=== PATIENT | female | born 1985 | race Caucasian/White ===

== ENCOUNTER → 2017-04-27 | Outpatient (CLI) | payer BC ==
[~2017-04-27] MED LIST: ANAPROX DS550 MG PO; CLINDAMYCIN HC300 MG PO; CYCLOBENZAPRINE10 MG PO; FLEXERIL5 MG PO; MEDROL DOSEPAK4 MG PO; MOTRIN800 MG PO; NAPROSYN500 MG PO; NKHM; NO DAILY MEDS; NORCO 5-325 TA1 EACH PO; PEN-VEE K500 MG PO; PHENERGAN25 M1 PO; PHENERGAN25 MG RC; ROBITUSSIN AC 10 MG/ PO; SYNTHROID RP0.1 MG PO; TYLENOL W/CODEI1 TA2 PO; ULTRAM50 MG PO; XANAX0.25 MG PO; ZITHROMAX250 MG PO; ZOFRAN ODT4 MG SL
[2017-04-27 14:21] LABS: FREE T4 0.99 ng/dl (0.76-1.46)
[2017-04-27 14:26] LABS: THYROID STIM HORMONE (HS) 1.03 uIU/ml (0.358-4.75)
== END | disposition home or self-care (01) ==
LOC: LAB 12:37 → US 13:00
PROVIDERS: Otolaryngology Plastic Surgery within the Head & Neck
DX: E04.1 Nontoxic single thyroid nodule (principal)

== ENCOUNTER 2018-12-13 10:02 | Emergency (ER) | payer BC ==
[~2018-12-13] VITALS: Ht 157.4 cm
[2018-12-13] MEDS ORDERED: AMOXICILLIN500 M2 PO (10:25)
[2018-12-13] MEDS ORDERED: FLONASE ALLERG9.9 ML NAS (10:25)
== END 2018-12-13 10:31 | disposition home or self-care (01) ==
LOC: ED 10:02
DX: J01.90 Acute sinusitis, unspecified (principal); F17.200 Nicotine dependence, unspecified, uncomplicated

== ENCOUNTER → 2019-06-21 | Outpatient (CLI) | payer BC ==
[~2019-06-21] MED LIST changes: +AMOXICILLIN500 M2 PO; +FLONASE ALLERG9.9 ML NAS; +Synthroid,Levo25 MCG PO
== END | disposition home or self-care (01) ==
LOC: US 05-29 13:00
DX: E03.9 Hypothyroidism, unspecified (principal); Z85.850 Personal history of malignant neoplasm of thyroid; Z90.89 Acquired absence of other organs

== ENCOUNTER → 2019-06-28 | Outpatient (CLI) | payer BC ==
[2019-06-28 12:27] LABS: BASO # 0.1 10*3/uL (0.0-0.1); BASO % 0.6 % (0.0-1.0); EOS # 0.4 10*3/uL (0.0-0.4); EOS % 3.6 % (1.0-4.0); HEMATOCRIT 45.2 % (37.0-47.0); HEMOGLOBIN 14.9 g/dl (12.0-16.0); LYMPH # 3.5 10*3/uL (1.3-4.4); LYMPH % 28.3 % (27.0-41.0); MEAN CELL VOLUME 91.5 fl (81.0-99.0); MEAN CORPUSCULAR HGB 30.2 pg (27.0-31.0); MEAN PLATELET VOLUME 11.5 fl (9.6-12.3); MONO # 0.7 10*3/uL (0.1-1.0); NEUT # 7.5 10*3/uL (2.3-7.9); NEUT % 61.1 % (47.0-73.0); PLATELET COUNT AUTOMATED 236 10*3/uL (130-400); RED BLOOD COUNT 4.94 10*6/uL (4.10-5.10); RED CELL DISTRI WIDTH 13.1 % (0-14.5); WHITE BLOOD COUNT 12.3 10*3/uL (4.8-10.8)
[2019-06-28 12:43] LABS: ALBUMIN 3.9 gm/dl (3.1-4.5); BILIRUBIN, DIRECT 0.2 mg/dL (0.0-0.2); TOTAL PROTEIN 7.7 gm/dL (6.4-8.2)
== END | disposition home or self-care (01) ==
LOC: LAB 12:12
PROVIDERS: Internal Medicine Gastroenterology
DX: R10.13 Epigastric pain (principal)

== ENCOUNTER → 2019-06-29 | Day surgery (SDC) | payer BC ==
[~2019-06-29] VITALS: Ht 157.4 cm; Wt 88.0 kg
--- NOTE | ~2019-06-29 | PROC NOTE ---
[place], [place] PROCEDURE NOTE NAME: MANNY CLARK UNIT #: [id number] ROOM: DOCTOR: FLYNN GARRETT MD BIRTHDATE: [birth year] DOS: 06/29/2019 PROCEDURE: Esophagogastroduodenoscopy and biopsy. INDICATIONS: Abdominal pain and nausea. An informed consent was obtained from the patient after indication of procedure, the alternatives and potential complications were explained to her. PROCEDURE MEDICATION: Sedation was administered by Anesthesiology Department. Scope used was Olympus diagnostic adult upper endoscope GIF-180, depth of insertion was to descending duodenum. FINDINGS: After adequate sedation, the patient was placed in left lateral decubitus position, scope was introduced under direct visualization through the upper esophageal sphincter into the esophagus. Esophageal mucosa appeared normal with no ulcerations or strictures. Lower esophageal sphincter was identified at 38 cm from incisors, normal appearing Z-line. Stomach was then intubated. Gastric mucosa inspected. Small amounts of food residues and bile were noted. Underlying mucosa showed evidence of gastritis and biopsies were obtained for a VIJAY test from the antrum and the gastric body. Retroflexed views in the fundus were unremarkable. The pylorus was intubated easily. The duodenal bulb and descending duodenum were within normal range. Scope was then withdrawn after the stomach was decompressed. The patient tolerated the procedure well. IMPRESSION: 1. Severe gastritis, CLOtest performed. 2. Small amounts of bile and food residues in the stomach, rule out gastroparesis. PLAN: We will review the VIJAY test results and treat the patient accordingly. The patient will be scheduled for a smart pill study. Office followup will be scheduled in 2-3 weeks. FLYNN GARRETT MD CM:PROCNOTE:PROCEDURE NOTE [id number] FLYNN GARRETT MD
[2019-06-29 08:10] VITALS: BP 116/66
[2019-06-29 09:36] VITALS: BP 138/81
[2019-06-29 09:51] VITALS: BP 140/69
[2019-06-29 10:03] VITALS: BP 132/66
== END | disposition home or self-care (01) ==
LOC: SDC 06-28 13:15
DX: R10.13 Epigastric pain (principal); K29.60 Other gastritis without bleeding; R19.8 Other specified symptoms and signs involving the digestive system and abdomen; E66.9 Obesity, unspecified; Z68.35 Body mass index [BMI] 35.0-35.9, adult; Z79.899 Other long term (current) drug therapy; Z98.890 Other specified postprocedural states

== ENCOUNTER → 2020-04-25 | Outpatient (CLI) | payer BC | END | disposition home or self-care (01) | LOC: US 04-14 14:30 | PROVIDERS: ATTEND Internal Medicine Endocrinology, Diabetes & Metabolism | DX: C73 Malignant neoplasm of thyroid gland (principal) ==

== ENCOUNTER → 2020-11-10 | Outpatient (CLI) | payer BC | END | disposition home or self-care (01) | LOC: US 00:44 | PROVIDERS: ATTEND Internal Medicine Endocrinology, Diabetes & Metabolism | DX: C73 Malignant neoplasm of thyroid gland (principal); E04.1 Nontoxic single thyroid nodule ==

== ENCOUNTER → 2021-06-10 | Outpatient (CLI) | payer BC | END | disposition home or self-care (01) | LOC: US 09:29 | PROVIDERS: ATTEND Internal Medicine Endocrinology, Diabetes & Metabolism | DX: C73 Malignant neoplasm of thyroid gland (principal); E04.1 Nontoxic single thyroid nodule ==

== ENCOUNTER → 2021-11-12 | Outpatient (CLI) | payer BC ==
[2021-11-12 13:17] LABS: FREE T4 0.96 ng/dl (0.76-1.46)
[2021-11-12 13:22] LABS: THYROID STIM HORMONE (HS) 0.689 uIU/ml (0.358-4.75)
[2021-11-13 08:06] LABS: FOLLICLE STIMULATING HORMONE 7.6 mIU/mL (.); LUTEINIZING HORMONE 4.6 mIU/mL (.)
[2021-11-18 17:06] LABS: AMERICAN ELM, IGE 0.49 kU/L (Class I); ASPERGILLUS FUMIGATU, IGE <0.10 kU/L (Class 0); BERMUDA GRASS, IGE 0.83 kU/L (Class II); BIRCH, COMMON SILVER IGE 0.39 kU/L (Class I); CLADOSPORIUM HERBARU, IGE <0.10 kU/L (Class 0); D FARINAE MITE 0.64 kU/L (Class II); D PTERONYSSINUS 0.84 kU/L (Class II); DOG DANDER, IGE 0.59 kU/L (Class II); IMMUNOGLOBULIN IgE 649 IU/mL (6-495); MAPLE LEAF SYCAMORE, IGE 0.48 kU/L (Class I); MAPLE/BOX ELDER, IGE 0.43 kU/L (Class I); MOUSE URINE IGE <0.10 kU/L (Class 0); PENICILLIUM CHRYSOGENUM, IGE <0.10 kU/L (Class 0); ROUGH PIGWEED, IGE 0.47 kU/L (Class I); SHEEP SORREL (DOCK), IGE 0.51 kU/L (Class I); SHORT RAGWEED, IGE 2.05 kU/L (Class III); TIMOTHY, IGE 5.79 kU/L (Class IV); WALNUT TREE, IGE 0.56 kU/L (Class II); WHITE ASH, IGE 0.69 kU/L (Class II); WHITE MULBERRY, IGE 0.29 kU/L (Class 0/I); WHITE OAK, IGE 0.47 kU/L (Class I)
== END | disposition home or self-care (01) ==
LOC: LAB 12:28 → US 13:00
PROVIDERS: ATTEND Family Medicine
DX: L68.0 Hirsutism (principal); R53.83 Other fatigue; E03.9 Hypothyroidism, unspecified; N91.2 Amenorrhea, unspecified; R10.819 Abdominal tenderness, unspecified site; R68.82 Decreased libido

== ENCOUNTER → 2022-05-19 | Outpatient (CLI) | payer BC ==
[2022-05-19 09:08] LABS: HEMATOCRIT 43.9 % (37.0-47.0); MEAN CELL VOLUME 95.4 fl (81.0-99.0); MEAN CORPUSCULAR HGB 31.7 pg (27.0-31.0); MEAN CORPUSCULAR HGB CONC 33.3 g/dl (33.0-37.0); MEAN PLATELET VOLUME 11.3 fl (9.6-12.3); RED BLOOD COUNT 4.6 10*6/uL (4.10-5.10); RED CELL DISTRI WIDTH 13.1 % (0-14.5); WHITE BLOOD COUNT 10.3 10*3/uL (4.8-10.8)
[2022-05-19 09:25] LABS: ALKALINE PHOSPHATASE 59 U/L (45-117); BUN 10 mg/dl (7-24); CHLORIDE 108 mmol/L (98-107); CREATININE 0.72 mg/dL (0.55-1.02); FREE T4 1.05 ng/dl (0.76-1.46); SGOT/AST 23 IU/L (3-35); SGPT/ALT 40 U/L (12-78); SODIUM 139 mmol/L (136-145); TOTAL PROTEIN 7.5 gm/dL (6.4-8.2)
[2022-05-19 09:32] LABS: THYROID STIM HORMONE (HS) 0.431 uIU/ml (0.358-4.75)
== END | disposition home or self-care (01) ==
LOC: LAB 08:37
PROVIDERS: ATTEND Family Medicine
DX: K58.9 Irritable bowel syndrome, unspecified (principal); R53.83 Other fatigue; E03.9 Hypothyroidism, unspecified

== ENCOUNTER → 2022-07-07 | Outpatient (CLI) | payer BC | END | disposition home or self-care (01) | LOC: US 12:30 | PROVIDERS: ATTEND Internal Medicine Endocrinology, Diabetes & Metabolism | DX: C73 Malignant neoplasm of thyroid gland (principal); E04.2 Nontoxic multinodular goiter ==

== ENCOUNTER → 2022-08-20 | Outpatient (CLI) | payer BC ==
[2022-08-20 10:57] LABS: HEMATOCRIT 46.1 % (37.0-47.0); MEAN CELL VOLUME 94.3 fl (81.0-99.0); MEAN CORPUSCULAR HGB 31.3 pg (27.0-31.0); MEAN CORPUSCULAR HGB CONC 33.2 g/dl (33.0-37.0); MEAN PLATELET VOLUME 10.8 fl (9.6-12.3); RED BLOOD COUNT 4.89 10*6/uL (4.10-5.10); RED CELL DISTRI WIDTH 14.1 % (0-14.5); WHITE BLOOD COUNT 11.1 10*3/uL (4.8-10.8)
[2022-08-20 11:53] LABS: ALKALINE PHOSPHATASE 66 U/L (46-116); BUN 7 mg/dl (9-23); CHLORIDE 99 mmol/L (98-107); CREATININE 0.65 mg/dL (0.55-1.02); FREE T4 1.26 ng/dl (0.89-1.76); POTASSIUM 3.9 mmol/L (3.4-5.1); SGPT/ALT 78 U/L (10-49); THYROID STIM HORMONE (HS) 1.868 uIU/ml (0.550-4.780)
== END | disposition home or self-care (01) ==
LOC: LAB 10:31
PROVIDERS: ATTEND Family Medicine
DX: E03.9 Hypothyroidism, unspecified (principal); K58.0 Irritable bowel syndrome with diarrhea; R10.9 Unspecified abdominal pain

== ENCOUNTER → 2023-10-17 | Outpatient (CLI) | payer BC ==
[2023-10-17 10:09] LABS: FREE T4 1.13 ng/dl (0.89-1.76)
== END | disposition home or self-care (01) ==
LOC: LAB 08:19 → US 08:30
PROVIDERS: ATTEND Internal Medicine Endocrinology, Diabetes & Metabolism
DX: C73 Malignant neoplasm of thyroid gland (principal); E04.2 Nontoxic multinodular goiter

== ENCOUNTER → 2024-05-03 | Outpatient (CLI) | payer OTHER ==
[2024-05-03 10:26] LABS: FREE T4 1.45 ng/dl (0.89-1.76)
== END | disposition home or self-care (01) ==
LOC: US 04-24 07:30 → LAB 08:42 → US 09:30
PROVIDERS: ATTEND Internal Medicine Endocrinology, Diabetes & Metabolism
DX: C73 Malignant neoplasm of thyroid gland (principal); E04.1 Nontoxic single thyroid nodule

== ENCOUNTER 2024-06-19 07:55 | Emergency (ER) | payer OTHER ==
[~2024-06-19] VITALS: Ht 157.4 cm; Wt 78.7 kg
[2024-06-19] MEDS ORDERED: TIROSINT75 MCG PO (08:07)
[2024-06-19] MEDS ORDERED: NAPROXEN500 MG PO (08:07)
[2024-06-19] MEDS ORDERED: AMOX-CLAV 875-1 EACH PO (08:07)
[2024-06-19] MEDS ORDERED: CYCLOBENZAPRINE10 MG PO (08:07)
[2024-06-19] MEDS ORDERED: Dicyclomine Hydrochloride 20 MG/10 ML OSYR PO STA (08:24)
[2024-06-19] MEDS ORDERED: Lidocaine Hydrochloride 15 ML UDC PO STA (08:24)
[2024-06-19] MEDS ORDERED: MG-AL HYDROXIDE/SIMETICONE 30 ML UDC PO STA (08:24)
[2024-06-19 08:57] LABS: BASO # 0.1 10*3/uL (0.0-0.1); BASO % 0.7 % (0.0-1.0); EOS # 0.4 10*3/uL (0.0-0.4); EOS % 3.7 % (1.0-4.0); HEMATOCRIT 43.9 % (37.0-47.0); LYMPH # 2.1 10*3/uL (1.3-4.4); LYMPH % 21.4 % (27.0-41.0); MEAN CELL VOLUME 92.8 fl (81.0-99.0); MEAN CORPUSCULAR HGB 30.4 pg (27.0-31.0); MEAN CORPUSCULAR HGB CONC 32.8 g/dl (33.0-37.0); MEAN PLATELET VOLUME 10.7 fl (9.6-12.3); MONO # 0.6 10*3/uL (0.1-1.0); MONO % 5.8 % (3.0-9.0); NEUT # 6.7 10*3/uL (2.3-7.9); NEUT % 67.8 % (47.0-73.0); PLATELET COUNT AUTOMATED 279 10*3/uL (130-400); RED BLOOD COUNT 4.73 10*6/uL (4.10-5.10); RED CELL DISTRI WIDTH 13.1 % (0-14.5); WHITE BLOOD COUNT 9.9 10*3/uL (4.8-10.8)
[2024-06-19 09:18] LABS: ALKALINE PHOSPHATASE 49 U/L (46-116); BUN 7 mg/dl (9-23); CHLORIDE 105 mmol/L (98-107); POTASSIUM 3.5 mmol/L (3.4-5.1); SGPT/ALT 19 U/L (5-49); TOTAL PROTEIN 7.7 gm/dL (6.0-8.0)
== END 2024-06-19 10:36 | disposition home or self-care (01) ==
LOC: ED 07:55
PROVIDERS: Internal Medicine
DX: R10.12 Left upper quadrant pain (principal); T39.315A Adverse effect of propionic acid derivatives, initial encounter; R11.2 Nausea with vomiting, unspecified; Z90.49 Acquired absence of other specified parts of digestive tract; Z98.890 Other specified postprocedural states; Y92.009 Unspecified place in unspecified non-institutional (private) residence as the place of occurrence of the external cause

== ENCOUNTER 2024-06-19 16:38 | Emergency (ER) | payer OTHER ==
[~2024-06-19] VITALS: Ht 157.4 cm; Wt 78.5 kg
[~2024-06-19 16:38] MED LIST changes: +AMOX-CLAV 875-1 EACH PO; +NAPROXEN500 MG PO; +TIROSINT75 MCG PO
[2024-06-19] MEDS ORDERED: Ondansetron Hydrochloride 4 MG TAB PO ONE (17:45)
[2024-06-19] MEDS ORDERED: IOHEXOL 300 MG/ML 100 ML VIAL IV ONE (17:55)
[2024-06-19 19:16] LABS: BILIRUBIN Negative (Negative); BLOOD Trace-Lysed (Negative); CLARITY Clear (Clear); COLOR Yellow (Yellow); GLUCOSE Negative (Negative); KETONE 3+ (Negative); LEUKO ESTERASE Negative (Negative); NITRITE Negative (Negative); SPECIFIC GRAVITY >= 1.030 (1.001-1.030)
[2024-06-19 19:28] LABS: MUCOUS 2+
[2024-06-19 19:29] LABS: WBC 0-2 wbc/hpf (0-5)
== END 2024-06-19 20:49 | disposition home or self-care (01) ==
LOC: ED 16:38
PROVIDERS: Nurse Practitioner Family
DX: R14.0 Abdominal distension (gaseous) (principal); E03.9 Hypothyroidism, unspecified; Z88.6 Allergy status to analgesic agent; Z88.8 Allergy status to other drugs, medicaments and biological substances; Z90.49 Acquired absence of other specified parts of digestive tract; Z98.890 Other specified postprocedural states

== ENCOUNTER → 2024-06-20 | Outpatient (CLI) | payer OTHER ==
[2024-06-21 05:07] LABS: HBSAG Negative (Negative); HEP B CORE AB, IGM Negative (Negative); HEPATITIS C ANTIBODY Non Reactive (Non Reactive)
[2024-06-21 16:09] LABS: ANTI-SMOOTH MUSCLE ANTIBODY 10 Units (0-19)
== END | disposition home or self-care (01) ==
LOC: LAB 14:17
PROVIDERS: ATTEND Family Medicine
DX: C73 Malignant neoplasm of thyroid gland (principal); R16.0 Hepatomegaly, not elsewhere classified; E80.6 Other disorders of bilirubin metabolism; F12.90 Cannabis use, unspecified, uncomplicated

== ENCOUNTER 2024-06-22 23:22 | Emergency (ER) | payer OTHER ==
[~2024-06-22] VITALS: Ht 157.4 cm; Wt 74.8 kg
[2024-06-22 23:57] LABS: BASO # 0.1 10*3/uL (0.0-0.1); BASO % 0.8 % (0.0-1.0); EOS # 0.2 10*3/uL (0.0-0.4); EOS % 1.3 % (1.0-4.0); HEMATOCRIT 44.3 % (37.0-47.0); LYMPH # 3.4 10*3/uL (1.3-4.4); LYMPH % 19.6 % (27.0-41.0); MEAN CELL VOLUME 92.7 fl (81.0-99.0); MEAN CORPUSCULAR HGB 30.5 pg (27.0-31.0); MEAN PLATELET VOLUME 10.5 fl (9.6-12.3); MONO % 5.8 % (3.0-9.0); NEUT # 12.3 10*3/uL (2.3-7.9); NEUT % 71.8 % (47.0-73.0); PLATELET COUNT AUTOMATED 309 10*3/uL (130-400); RED BLOOD COUNT 4.78 10*6/uL (4.10-5.10); RED CELL DISTRI WIDTH 12.8 % (0-14.5); WHITE BLOOD COUNT 17.2 10*3/uL (4.8-10.8)
[2024-06-23 00:18] LABS: ALKALINE PHOSPHATASE 49 U/L (46-116); BUN 8 mg/dl (9-23); CHLORIDE 102 mmol/L (98-107); LIPASE 35 U/L (12-53); SGPT/ALT 20 U/L (5-49); TOTAL PROTEIN 7.9 gm/dL (6.0-8.0)
[2024-06-23] MEDS ORDERED: SODIUM CHLORIDE 0.9% 1,000 ML IV SCH (00:30)
[2024-06-23] MEDS ORDERED: IOHEXOL 300 MG/ML 100 ML VIAL IV ONE (00:35)
[2024-06-23] MEDS ORDERED: IOHEXOL 300 MG/ML 100 ML VIAL ONE (00:52)
[2024-06-23 02:11] LABS: BILIRUBIN Negative (Negative); BLOOD Negative (Negative); CLARITY Clear (Clear); COLOR Yellow (Yellow); GLUCOSE Negative (Negative); KETONE 3+ (Negative); LEUKO ESTERASE Negative (Negative); NITRITE Negative (Negative); PH 5.5 (4.5-8.0); SPECIFIC GRAVITY >= 1.030 (1.001-1.030)
[2024-06-23 02:18] LABS: MUCOUS 1+; RBC 0-2 rbc/hpf (0-2); WBC 0-2 wbc/hpf (0-5)
== END 2024-06-23 04:16 | disposition home or self-care (01) ==
LOC: ED 23:22
PROVIDERS: Internal Medicine
DX: R14.0 Abdominal distension (gaseous) (principal); R11.2 Nausea with vomiting, unspecified; Z88.8 Allergy status to other drugs, medicaments and biological substances; Z88.6 Allergy status to analgesic agent; Z90.49 Acquired absence of other specified parts of digestive tract; Z98.890 Other specified postprocedural states

== ENCOUNTER → 2024-06-27 | Outpatient (CLI) | payer OTHER | END | disposition home or self-care (01) | LOC: US 07:03 | PROVIDERS: ATTEND Physician Assistant Medical | DX: R16.0 Hepatomegaly, not elsewhere classified (principal); K76.0 Fatty (change of) liver, not elsewhere classified; Z90.49 Acquired absence of other specified parts of digestive tract ==

== ENCOUNTER → 2024-07-27 | Outpatient (CLI) | payer OTHER ==
[2024-07-27 11:09] LABS: TOTAL PROTEIN 7.8 gm/dL (6.0-8.0)
[2024-07-28 05:07] LABS: HBsAG SCREEN Negative (Negative); HCV Ab Non Reactive (Non Reactive); HEP B CORE Ab, IgM Negative (Negative); HEP B SURFACE Ab, Qual Non Reactive (.); HEPATITIS A AB, TOTAL Negative (Negative)
== END | disposition home or self-care (01) ==
LOC: LAB 09:36
PROVIDERS: ATTEND Physician Assistant Medical
DX: K76.0 Fatty (change of) liver, not elsewhere classified (principal)

== ENCOUNTER → 2024-08-07 | Outpatient (CLI) | payer OTHER ==
[2024-08-07 13:24] LABS: BASO # 0.1 10*3/uL (0.0-0.1); BASO % 0.8 % (0.0-1.0); EOS # 0.2 10*3/uL (0.0-0.4); HEMATOCRIT 39.8 % (37.0-47.0); MEAN CELL VOLUME 93.9 fl (81.0-99.0); MEAN CORPUSCULAR HGB 30.7 pg (27.0-31.0); MEAN CORPUSCULAR HGB CONC 32.7 g/dl (33.0-37.0); MEAN PLATELET VOLUME 10.9 fl (9.6-12.3); MONO # 0.6 10*3/uL (0.1-1.0); MONO % 7.3 % (3.0-9.0); NEUT # 4.9 10*3/uL (2.3-7.9); NEUT % 64.8 % (47.0-73.0); PLATELET COUNT AUTOMATED 268 10*3/uL (130-400); RED BLOOD COUNT 4.24 10*6/uL (4.10-5.10); RED CELL DISTRI WIDTH 13.2 % (0-14.5); WHITE BLOOD COUNT 7.6 10*3/uL (4.8-10.8)
== END | disposition home or self-care (01) ==
LOC: LAB 13:11
PROVIDERS: ATTEND Family Medicine
DX: D72.829 Elevated white blood cell count, unspecified (principal)

== ENCOUNTER → 2024-09-11 | Outpatient (CLI) | payer OTHER ==
[~2024-09-11] MED LIST changes: +BARIUM SULFATE 60% 355 ML BOT PO ONE; +BARIUM SULFATE 98% 340 GM BOT PO ONE; +BARIUM SULFATE TABLET 700 MG PO ONE; +SODIUM BICARBONATE 4 GM PACK PO ONE
[2024-09-11 10:19] LABS: BASO # 0.1 10*3/uL (0.0-0.1); BASO % 0.9 % (0.0-1.0); EOS # 0.2 10*3/uL (0.0-0.4); EOS % 2.8 % (1.0-4.0); HEMATOCRIT 44.1 % (37.0-47.0); MEAN CELL VOLUME 92.3 fl (81.0-99.0); MEAN CORPUSCULAR HGB CONC 33.6 g/dl (33.0-37.0); MEAN PLATELET VOLUME 10.7 fl (9.6-12.3); MONO # 0.6 10*3/uL (0.1-1.0); MONO % 6.7 % (3.0-9.0); NEUT # 5.4 10*3/uL (2.3-7.9); NEUT % 65.2 % (47.0-73.0); PLATELET COUNT AUTOMATED 245 10*3/uL (130-400); RED BLOOD COUNT 4.78 10*6/uL (4.10-5.10); RED CELL DISTRI WIDTH 13.2 % (0-14.5); WHITE BLOOD COUNT 8.2 10*3/uL (4.8-10.8)
[2024-09-11 10:46] LABS: ALKALINE PHOSPHATASE 47 U/L (46-116); BUN 11 mg/dl (9-23); CHLORIDE 104 mmol/L (98-107); CHOLESTEROL 144 mg/dL (<200); FREE T4 1.27 ng/dl (0.89-1.76); LDL CHOLESTEROL 75 mg/dL (9-159); POTASSIUM 4.2 mmol/L (3.4-5.1); SGPT/ALT 36 U/L (5-49); TRIGLYCERIDES 85 mg/dl (<150)
[2024-09-11 11:20] LABS: VITAMIN D, 25-HYDROXY 37.1 ng/mL (30-100)
== END | disposition home or self-care (01) ==
LOC: LAB 07:42 → RAD 07:42
PROVIDERS: Internal Medicine; ATTEND Internal Medicine Gastroenterology
DX: K59.00 Constipation, unspecified (principal); R53.83 Other fatigue; E53.9 Vitamin B deficiency, unspecified; E55.9 Vitamin D deficiency, unspecified; R10.9 Unspecified abdominal pain; Z13.0 Encounter for screening for diseases of the blood and blood-forming organs and certain disorders involving the immune mechanism; Z13.1 Encounter for screening for diabetes mellitus; Z13.21 Encounter for screening for nutritional disorder; Z13.220 Encounter for screening for lipoid disorders; Z13.228 Encounter for screening for other metabolic disorders; Z13.29 Encounter for screening for other suspected endocrine disorder; Z13.6 Encounter for screening for cardiovascular disorders; Z13.89 Encounter for screening for other disorder; Z13.9 Encounter for screening, unspecified; E07.9 Disorder of thyroid, unspecified